=== PATIENT | male | born 1965 | race Caucasian/White ===

== ENCOUNTER 2019-02-15 12:52 | Emergency (ER) | payer MEDICAID, OTHER ==
[~2019-02-15] VITALS: Ht 185.4 cm; Wt 124.7 kg
[~2019-02-15 12:52] MED LIST: MEDICAL MARIJUANA
--- NOTE | 2019-02-15 13:20 | NUR ---
PT BIBSELF "INJURED MY BACK, LIFTED SOMETHING HEAVY AND TWISTED MY BACK". PT AAOX4, BREATHING EVEN AND UNLABORED. PT AMBULATORY. CONNECTED TO THE MONITOR. WILL CONTINUE TO MONITOR
[2019-02-15] MEDS ORDERED: DIAZEPAM 10 MG TABLET PO ONE (14:30)
[2019-02-15] MEDS ORDERED: IBUPROFEN 600 MG TABLET PO ONE ×2 (14:30→14:35)
[2019-02-15] MEDS ORDERED: DIAZEPAM 5 MG TABLET ONE (14:36)
[2019-02-15 15:48] VITALS: BP 150/71
--- NOTE | 2019-02-15 15:49 | NUR ---
Patient discharged to home in stable condition. Written and verbal after care instructions given. Patient verbalizes understanding of instruction.
== END 2019-02-15 15:50 | disposition home or self-care (01) ==
LOC: ER 12:54
DX: M62.830 Muscle spasm of back (principal); G89.29 Other chronic pain; Z60.2 Problems related to living alone; X50.1XXA Overexertion from prolonged static or awkward postures, initial encounter; Y93.89 Activity, other specified; Y92.89 Other specified places as the place of occurrence of the external cause; Y99.8 Other external cause status

== ENCOUNTER 2024-10-01 08:11 | Emergency (ER) | payer MEDICAID ==
[~2024-10-01] VITALS: Ht 188 cm; Wt 112.0 kg
[2024-10-01 08:47] LABS: BASOPHILS # (AUTO) 0.1 K/uL (0.0-0.2); BASOPHILS % (AUTO) 1.2 % (0.0-2.0); EOSINOPHILS # (AUTO) 0.1 K/uL (0.0-0.7); EOSINOPHILS % (AUTO) 2.2 % (0.0-6.0); HEMATOCRIT 48 % (39-51); HEMOGLOBIN 16.1 g/dL (13.5-17.5); LYMPHOCYTES # (AUTO) 1.9 K/uL (0.8-4.8); LYMPHOCYTES % (AUTO) 31.6 % (20.0-44.0); MEAN CORPUSCULAR HEMOGLOBIN 31 PG (26.0-33.0); MEAN CORPUSCULAR HGB CONC 33 g/dl (31.0-36.0); MEAN CORPUSCULAR VOLUME 94 fL (80-96); MONOCYTES # (AUTO) 0.5 K/uL (0.1-1.30); MONOCYTES % (AUTO) 8.8 % (2.0-12.0); NEUTROPHILS # (AUTO) 3.4 K/uL (1.8-8.9); NEUTROPHILS % (AUTO) 56.2 % (43.0-81.0); PLATELET COUNT (AUTO) 213 K/uL (150-450); RED BLOOD CELL COUNT(AUTO) 5.12 MIL/uL (4.5-6.0); RED CELL DISTRIBUTION WIDTH 13.3 % (11.5-15.0)
[2024-10-01 09:15] LABS: CALCIUM, SERUM 9.1 mg/dL (8.5-10.1); POTASSIUM 4.1 mmol/L (3.5-5.1)
[2024-10-01 10:42] VITALS: BP 128/90; TEMP 98.5; O2SAT 99
== END 2024-10-01 10:43 | disposition home or self-care (01) ==
LOC: ER 08:24
DX: R07.89 Other chest pain (principal); R06.02 Shortness of breath; G89.29 Other chronic pain; Z60.2 Problems related to living alone
CPT/HCPCS: 36415; 71045-TC; 80048-TC; 84484-TC; 85025-TC